=== PATIENT | female | born 1960 | race Hispanic/Latino ===

== ENCOUNTER 2025-01-11 08:23 | Day surgery (SDC) | payer OTHER ==
[2025-01-07 16:10] LABS: Absolute Basophils 0.1 K/uL (0-0.5); Absolute Eosinophils 0.1 K/uL (0-0.5); Absolute Monocytes 0.5 K/uL (0.1-1.3); Absolute Neutrophil 4.8 K/uL (1.8-8.0); Basophils % 1.2 % (0-1.3); Eosinophils % 1.5 % (0-4.4); Hemoglobin 12.6 g/dL (12.0-15.0); Lymphocytes % 26.8 % (15.3-44.8); MCH 27.8 pg (27.0-35.0); MCHC 33.2 g/dL (32.0-36.0); MCV 83.8 fL (80-100); MPV 7.7 fL (7.6-11.3); Monocytes % 6.4 % (3.3-12.3); Neutrophils % 64.1 % (41.7-73.7); Nucleated Red Blood Cells % 0.1 % (0-0); Platelets 241 thou/uL (152-406); RBC Red Blood Cell Count 4.53 M/uL (3.86-4.86); Red Cell Distribution Width 15.4 % (12.1-15.2)
--- NOTE | 2025-01-07 16:13 | RAD REPORT ---
EXAM: Chest Pa And Lat (2 Views) HISTORY: 64 years Female Pre-op pending hernia repair COMPARISON: None. FINDINGS: LUNGS/PLEURA: The lungs are clear. No pleural effusions or pneumothorax. No pulmonary edema. CARDIAC/MEDIASTINUM: The cardiac silhouette is within normal limits. UPPER ABDOMEN: No significant abnormality. BONES: No acute abnormality. LINES/TUBES/OTHER: N/A IMPRESSION: No evidence of acute cardiopulmonary disease.
[2025-01-07 16:30] LABS: Anion Gap 7.7 mEq/L (5.0-15.0); Potassium 4.7 mEq/L (3.5-5.1)
[2025-01-11] MEDS: NA CHLORIDE 0.9% 1,000 ML ONE (08:57)
[2025-01-11] MEDS ORDERED: FENTANYL CITR 100 MCG/2 ML ONE (09:02)
[2025-01-11] MEDS ORDERED: propofoL 200 MG/20 ML VIAL IV ONE (09:02)
[2025-01-11] MEDS ORDERED: ONDANSETRON 4 MG/2 ML VIAL ONE (09:02)
[2025-01-11] MEDS ORDERED: ROCURONIUM 50 MG/5 ML VIAL IV ONE (09:02)
[2025-01-11] MEDS ORDERED: KETOROLAC 30 MG/ML INJ ONE (09:02)
[2025-01-11] MEDS ORDERED: LIDOCAINE 1% MPF 5 ML VIAL ONE (09:02)
[2025-01-11] MEDS ORDERED: MIDAZOLAM HCL 2 MG/2 ML INJ ONE (09:02)
[2025-01-11] MEDS ORDERED: EPHEDRINE SULF 50 MG/ML VIAL ONE (10:24)
[2025-01-11] MEDS: CIPROFLOXACIN 400mg IV 400 MG/200 ML BAG IV ONE (10:25)
[2025-01-11] MEDS ORDERED: NEOSTIGMINE 1 MG/ML -10 ML VIAL ONE (10:59)
[2025-01-11] MEDS ORDERED: GLYCOPYRROLATE 0.2 MG/ML SYR ONE (10:59)
--- NOTE | 2025-01-11 11:16 | P.BOP ---
Preoperative diagnosis: Tender incarcerated incisional ventral hernia 10cm Postoperative diagnosis: same plus intrab adhesionsadhesions Primary procedure: 1. Laparoscopic repair incarcerated incisional ventral hernia with mesh Secondary procedure: 2. Laparoscopic lysis of adhesions Estimated blood loss: <10cc Specimen: hernia sac and content Findings: extensive intrabdominal adhesion Anesthesia: General Complications: None Implants: ventralight ST with echo PS 20x15 cm Transferred to: Recovery Room Condition: Good
[2025-01-11] MEDS: HYDROMORPHONE HCL 0.5 MG/0.5 ML INJ ONE ×2 (11:36→11:48)
--- NOTE | 2025-01-11 12:15 | EKG ---
Test Date: 2025-01-07 Test Time: 16:27:13 Credit Specialist: JASPREET MEASUREMENT RESULTS: Intervals: Rate: 84 CA: 152 QRSD: 76 QT: 380 QTc: 449 [place]: P: 47 CA: 152 QRS: 23 T: 42 INTERPRETIVE STATEMENTS: Normal sinus rhythm Possible Left atrial enlargement Borderline ECG No previous ECG available for comparison Electronically Signed On 01-11-25 12:08:40 [employer] by Dilip Conn
[2025-01-11] MEDS: CODEINE 30MG/APAP 300MG TAB ONE (12:40)
[2025-01-11 13:41] VITALS: BP 108/52; TEMP 97.2; O2SAT 97
--- NOTE | 2025-01-13 22:21 | OP ---
Surgeon: Chin Rowe MD Preoperative Diagnosis: Tender incarcerated incisional ventral hernia about 10 cm. Postoperative Diagnoses: Tender incarcerated incisional ventral hernia about 10 cm and intraabdomina l adhesions. Procedures: 1. Laparoscopic repair of incarcerated incisional ventral hernia with mesh and the hernia is about 10 cm. 2. Laparoscopic lysis of adhesions. Specimens: Hernia sac and content. Finding: Extensive intraabdominal adhesions expected from previous surgeries in that area, but those adhesions have to be done in order for us to reduce the content and also be able to place the mesh i n that region due to the quality of the fascia. Anesthesia: General plus local. Implant: Ventralight ST mesh with echo positioning system about 20 x 15 cm. Estimated Blood Loss: Less than 10 cc. Complications: None. Indications: This is a case of a 64-year-old patient with previous incision in the upper abdomen wit h a ventral hernia causing pain and discomfort. She wants hernia repair. The benefits, alternatives , and risks of laparoscopic possible open repair of incisional ventral hernia was fully explained, wh ich include, but not limited to infection, bleeding, damage to adjacent structures, anesthesia compli cation, recurrence, AR, and even . She also understands this may not relieve the symptoms. Sh e might need more than one surgical intervention. She also understands she may need mesh in that reg ion. Pros and cons of mesh placement were discussed with the patient and all the questions were answ ered to the satisfaction and she signed a consent. The patient was advised the importance also of lo sing weight. Description Of Procedure: The patient was brought to the operating room, placed in supine position. Anesthesia was induced without complication. Ventral area and abdomen were prepped and draped in a sterile fashion. A time-out was called. An incision was made after injecting local anesthetic. Inc ision was made in the ventral region right where she had previous incision. That incision allowed me to go down to the fascia. We noticed the fascia to be friable, but at least allowed me to identify the hernia sac and content. Some of the content can be reduced. Some other ones were combination of part of falciform, part of omentum with adhesions, so may have to be done laparoscopically. So, trev arimundo a Marilee trocar to this area. This allowed me to obtain pneumoperitoneum and then be able to pos ition 2 more trocars to the left and right of the abdomen and when we put the cameras in that area, w e were able to visualize the center. Once again, we noticed the adhesions present and without removi ng the adhesions, we cannot do this. So half the case was done just doing adhesions with the help of LigaSure. We made sure we cause no enterotomies in this patient. Hemostasis was obtained at all ti mes. When we had adhesions done, we were able to visualize the defect little bit better. We cleaned the fascial edges underneath, reduced the rest of the content of the abdomen. We were able to place a Prolene on the defect to close that primarily, but we did not tie them because when we calculated the mesh to go over to cover this area by 3-5 cm, we have to use a 20-15 cm mesh so we dropped that m esh through the incision before we tied all except one, then we inflated the balloon of that mesh to spread the mesh against the abdominal wall nice and flat. Then, after that, we used SorbaFix to fixa te that circumferentially. Then, we removed the balloon and then closed and tied the fascial defect completely and closed the defect primarily and then continue fixation of the underlying mesh with Sor baFix. Once we had that, we noticed that circumferentially we covered the area. We proceeded then t o look at the area of the lysis of adhesions with no bleeding no enterotomies. At that moment, I pro ceeded to deflate pneumoperitoneum. Trocars were removed. No bleeding and then after that, closed t he subcutaneous tissue with 3-0 chromic and then skin was approximated. Sponge count and instrument count was correct. The patient tolerated the procedure well. The patient was sent to recovery in stable condition. JACQUIE/NATE Voice ID: [id number] Report ID: [id number]
== END 2025-01-11 13:34 | disposition home or self-care (01) ==
LOC: OR 08:23
PROVIDERS: ATTEND Surgery
PROC: 0DNW4ZZ Release Peritoneum, Percutaneous Endoscopic Approach (ICD-10-PCS; 2025-01-11)
PROC: 0WUF4JZ Supplement Abdominal Wall with Synthetic Substitute, Percutaneous Endoscopic Approach (ICD-10-PCS; principal; 2025-01-11 10:08)
DX: K43.0 Incisional hernia with obstruction, without gangrene (principal); K66.0 Peritoneal adhesions (postprocedural) (postinfection)
CPT/HCPCS: 49594; 93005; 85025; 80048; 36415; 82947 ×2; 88302; 71046; 49329; J2704; J2710; J2003; J2250; J3010; J1171 ×2; J2405; J0744; J7030; A4314